=== PATIENT | female | born 1960 | race Caucasian/White ===

== ENCOUNTER 2020-11-04 10:52 | Inpatient (IN) | payer OTHER ==
[~2020-11-04] VITALS: Ht 160 cm; Wt 46.0 kg
[2020-11-04 10:52] VITALS: BP 106/37
[2020-11-04 12:08] LABS: ABSOLUTE NEUTROPHILS 7.2 thou/uL (1.4-8.2); BASOPHILS 0.5 % (0.0-2.0); EOSINOPHILS 1.5 % (0.0-3.0); HEMATOCRIT 34.2 % (37.0-47.0); HEMOGLOBIN 11.3 gm/dL (12.0-15.0); LYMPHOCYTES 11.8 % (24.0-44.0); MCHC 32.9 g/dL (28.0-37.0); MCV 94.1 fL (80.0-100.0); MONOCYTES 9.3 % (1.0-8.0); PLATELET COUNT 381 thou/uL (150-400); POLYS 76.9 % (36.0-66.0); RBC 3.63 mil/uL (4.20-5.00); RDW 12.4 % (10.5-14.5); WBC 9.4 thou/uL (4.0-11.0)
[2020-11-04 12:14] LABS: CALCIUM 8.1 mg/dL (8.5-10.1); CREATININE 0.4 mg/dL (0.6-1.0); POTASSIUM 4.1 mmol/L (3.5-5.1)
[2020-11-04 12:26] LABS: ALBUMIN 2.4 g/dL (3.4-5.0); TOTAL BILIRUBIN 0.2 mg/dL (0.2-1.0)
[2020-11-04 20:01] VITALS: BP 114/52
[2020-11-04 21:41] VITALS: BP 109/47
[2020-11-05 06:23] LABS: ABSOLUTE NEUTROPHILS 6.1 thou/uL (1.4-8.2); BASOPHILS 0.6 % (0.0-2.0); EOSINOPHILS 2.1 % (0.0-3.0); HEMATOCRIT 34.4 % (37.0-47.0); HEMOGLOBIN 11.5 gm/dL (12.0-15.0); MCH 31.5 pg (26.0-34.0); MCHC 33.6 g/dL (28.0-37.0); MCV 93.7 fL (80.0-100.0); MONOCYTES 10.3 % (1.0-8.0); PLATELET COUNT 371 thou/uL (150-400); RBC 3.67 mil/uL (4.20-5.00); RDW 12.5 % (10.5-14.5); WBC 8.2 thou/uL (4.0-11.0)
[2020-11-05 06:41] LABS: ALBUMIN 2.4 g/dL (3.4-5.0); CALCIUM 8.1 mg/dL (8.5-10.1); CREATININE 0.4 mg/dL (0.6-1.0); MAGNESIUM 2.2 mg/dL (1.8-2.4); PHOSPHORUS 3.7 mg/dL (2.5-4.9); POTASSIUM 3.5 mmol/L (3.5-5.1); TOTAL BILIRUBIN 0.4 mg/dL (0.2-1.0); TOTAL PROTEIN 6.2 g/dL (6.4-8.2)
[2020-11-05 07:20] VITALS: BP 52/27
[2020-11-05] MEDS ORDERED: CULTURELLE KID1 EAC1 PO (07:59)
[2020-11-05] MEDS ORDERED: APAP W/CODEINE1 TA2 PO (07:59)
[2020-11-05] MEDS ORDERED: FOSAMAX 70 MG T70 MG PO (08:00)
[2020-11-05] MEDS ORDERED: ASA81BEC PO (08:01)
[2020-11-05] MEDS ORDERED: AZO D-MANNOSE500 MG PO (08:02)
[2020-11-05] MEDS ORDERED: BACLOFEN 10MG T10 MG PO (08:02)
[2020-11-05] MEDS ORDERED: OXYBUTYNIN 5 MG5 M2 PO (08:03)
[2020-11-05] MEDS ORDERED: DULCOLAX STOOL100 M1 PO (08:03)
[2020-11-05] MEDS ORDERED: MELOXICAM15 MG PO (08:03)
[2020-11-05] MEDS ORDERED: SANTYL OINTMENT30 G1 TOP (08:04)
[2020-11-05] MEDS ORDERED: SERTRALINE HCL100 MG PO (08:04)
[2020-11-05] MEDS ORDERED: TUMS300 MG PO (08:05)
[2020-11-05] MEDS ORDERED: VITAMIN D310 MC4 PO (08:06)
[2020-11-05 10:01] VITALS: BP 98/43
--- NOTE | 2020-11-05 11:15 | NUR ---
Assumed care of pt at 0700. Pt a&ox3. Pain controlled with prn pain medicine. Feliz catheter in place. IV antibiotics infusing. RA. Home meds reconcilled. Call light within reach. Fall precautions in place. Will continue to monitor.
--- NOTE | 2020-11-05 11:57 | HC ---
[facility] [place] [address] CONSULTATION Name: RISSA HASKINS Room #: 442- ADM IN M.R.#: [id number] Admission: 11/04/20 Attend Phys: Stephanie Hand MD Discharge: Date of : 58 Report #: [id number] THIS REPORT FOR: cc: FAM - Family physician unknown FAM - Family physician unknown Billy Lugo MD ~ DATE OF SERVICE: 11/04/2020 INFECTIOUS DISEASE CONSULTATION ATTENDING PHYSICIAN: Dr. Hand. REASON FOR EVALUATION: Infected sacral decubitus ulcer. HISTORY OF PRESENT ILLNESS: The patient examined. This is a 60-year-old woman with history of longstanding multiple sclerosis who has significant deficits at this point. Up until three weeks ago, had been limited to bed and wheelchair, now is primarily in bed. She has a history where she slid out of a wheelchair and sustained a skin tear, apparently progressed now as noted to have an ulcer with increasing drainage and malodor. Additionally, she notes likely pressure related as well. Has left posterior heel tissue injury, although still has intact skin. Denies any systemic illness at this point. She notes she has difficulty maintaining her weight. Appetite is somewhat intermittent. She has esophageal spasms as well. She denies any pulmonary related complaints. She was COVID negative. Albumin 2.4. Lactic acid 1.3. Apparently had a left tib-fib injury with fracture of the proximal tibia she notes roughly a month ago. ALLERGIES: None known. MEDICATIONS: None thus far have been started. PAST MEDICAL HISTORY: Includes MS that has been secondarily progressive with severe deficits at this point, now a stage III decubitus ulcer; malnutrition. SOCIAL HISTORY: She is disabled. FAMILY HISTORY: Noncontributory. REVIEW OF SYSTEMS: Otherwise, unremarkable with the exception of the above. PHYSICAL EXAMINATION: GENERAL: She appears chronically ill, undernourished. She is pleasant, cooperative. She is lucid, although she does have some minor memory issues. She is afebrile. VITAL SIGNS: Pulse 77, respirations 15, blood pressure 106/37. [facility] [address] [place] [address] CONSULTATION Name: RISSA HASKINS Room #: 442-P [facility].#: [id number] Admission: 11/04/20 Attend Phys: Stephanie Hand MD Discharge: Date of : 58 Report #: [id number] SKIN: Warm, dry, no rashes. HEENT: Normocephalic. Extraocular muscles intact. NECK: Supple. LUNGS: Diminished breath sounds, otherwise clear. HEART: Regular. I do not appreciate a murmur. ABDOMEN: Soft, nontender. EXTREMITIES: Distal lower extremity has a blackened type eschar over the posterior heel. The limitations in the ER, the wound will be evaluated when she is better able to roll with assistance. Wound care is pending. GENITOURINARY AND RECTAL: Deferred. LABORATORY DATA: CBC: White count of 9.4, H and H 11.3 and 34.2, platelets of 381. CRP of 51.2. Electrolytes: Sodium 137, potassium 4.1, chloride 101, bicarbonate is 28, BUN and creatinine 13 and 0.4, glucose of 144. LFTs unremarkable. Albumin of 2.4, total protein of 6.0, lactic acid 1.3. Sed rate of 44. ASSESSMENT AND PLAN: Stage III sacral decubitus ulcer in the setting of multiple sclerosis with profound disability. At this point, she also has a hypoalbuminemia with malnutrition and mild anemia. We will initiate therapy for presumed mixed infection, suspect will need some sort of debridement of the wound to remove the devitalized tissue. Will need dietary evaluation to optimize her nutritional status. She is somewhat limited, offloading going to be somewhat difficult, continuing rotation. We will monitor expectantly at risk for additional complications. <ELECTRONICALLY SIGNED> By: Billy Lugo MD 11/05/20 1157 [id number] Billy Lugo MD /nt
--- NOTE | 2020-11-05 15:53 | NUR ---
ASSESSMENT: CM REVIEWED CHART AND SPOKE WITH PATIENT THE BEDSIDE. PT IS FROM [facility]. PER RECORDS PT HAS STAGE THREE PRESSURE ULCER. PT REPORTS NORMALLY USING A WHEELCHAIR FOR AMBULATION. PT REPORTS PRIOR TO BEING AT [facility] SHE WAS LIVING WITH HER NIECE IN A DUPLEX. PT REPORTS THAT SHE PREFERS TO GO BACK TO [facility] AT DISCHARGE. CM FAXED CLINICAL TO [facility] AND LEFT A VM WITH ADMISSIONS. PT IS BEING SEEN BY ID. PER RECORDS PT MAY NEED I AND D. PT REMAINS ON IV ANBX. CM WILL CONTINUE TO FOLLOW TO ASSIST NEEDED.
[2020-11-05 17:00] VITALS: BP 109/54
[2020-11-05 20:09] VITALS: BP 102/38
--- NOTE | 2020-11-06 03:31 | NUR ---
assumed care of pt at 1900. bedside shift report complete. Pt aox4. No c/o pain at this time. Beginning of shift assessment complete. LFA PIV saline locked. Meds given per may. Bilaterlat prafo boots in place, pt repositioned for comfort. Fall precations in place. Pt will be NPO at NH, pt educated provided, pt verbalized understanding. All needs med. Fall precations in place. Call light in reach. Will continute to monitor.
[2020-11-06 07:06] VITALS: BP 95/41
[2020-11-06 09:40] VITALS: BP 112/44
--- NOTE | 2020-11-06 10:50 | NUR ---
PT ASSESSED AT START OF SHIFT. PT SLEPT OK. COMFORTABLE. WENT FOR I&D OF BUTTOCK ULCER. IV NOTED TO BE INFILTRATED AT TIME OF DEPARTURE FOR OR- WILL HAVE DEPT RESTART IV. SISTER AT BEDSIDE.
--- NOTE | 2020-11-06 14:51 | NUR ---
ON-GOING ASSESSMENT: PT IS D/P EXCISIONAL DEBRIDEMENT TODAY. PT REMAINS ON IV ANBX. PT IS FROM [facility] SO CM FAXED UPDATED CLINICAL TO [facility] AND SPOKE WITH NOEMÍ IN ADMISSIONS. CM ALSO SPOKE WITH PATIENTS SISTER WHO WAS AT THE BEDSIDE. PTS SISTER WORKS AT [facility] AND NOT TOO HAPPY WITH THE WOUND CARE THERE. SHE STATES SHED PREFER PATIENT COME BACK HOME WHERE SHE LIVES WITH PATIENT AND HER HELP HER. SHE REPORTS THEY LIVE IN A DUPLEX AND EASY TO GET HER WHEELCHAIR IN THERE. SHE REPORTS SHE FEELS WITH HH AND HER ASSISTANCE SHE WOULD DO OK. CM DISCUSSED THAT PATIENT COULD ALSO GO TO ANOTHER SNF FOR WOUND CARE AND PT/SISTER CURRENTLY DECLINE. SISTER STATES SHE WANTS TO DO [employer] [facility] [employer] AND WILL LET CM KNOW. PTS SISTER ASKING FOR POSSIBLE GUESSTIMATE ON DISCHARGE DATE. CM DISCUSSED PT IS STILL ON IV ANBX AND UNCLEAR ON THAT PLAN OF NOW.CM REACHED OUT TO ATTENDING AND WAITING TO HEAR BACK.
[2020-11-06 16:54] VITALS: BP 102/51
--- NOTE | 2020-11-06 18:30 | NUR ---
PT WENT FOR BUTTOCK WOUND DEBRIDEMENT AND RETURNED W/ DSNG TO BACKSIDE D&I. TEMP 99.2. EATING AND DRINKING VERY WELL. NO C/O PAIN POSTOP.
[2020-11-06 19:42] VITALS: BP 96/43
--- NOTE | 2020-11-07 02:36 | NUR ---
Assyukimd care of pt at 1900. Aox4. MARLI assessment complete. Pt had ID compelted today. pt requesting tylenol at [facility] for pain control. Meds given as ordered, prn tylenol administered. Prafo boots on nilateral LEs. Pts 1700 IV abt was not administered, so this nurse called pharmacy to adjust timings to esnure pt is getting IV abt q8. Provided educationto pt on pending US on L hip ulcer. pt verbalized understanding. Feliz care complete. ector care complete. Dressings CDI. refilled water. pt denies any other needs. Call light in reach, all needs met
[2020-11-07 04:17] VITALS: BP 89/50
[2020-11-07 07:23] VITALS: BP 94/45
--- NOTE | 2020-11-07 08:55 | NUR ---
Assumed care of pt at 0700. Pt a&ox4. Pain controlled. IVF infusing. Dressing c/d/i. Feliz catheter in place. Q2h turn. Call light within reach. Fall precautions in place. Will continue to monitor.
[2020-11-07 16:00] VITALS: BP 167/74
[2020-11-07 21:18] VITALS: BP 88/39
--- NOTE | 2020-11-08 03:51 | NUR ---
PT HAD A BIG BM AT START OF SHIFT.WOUND CARE DONE IMMEDIATELY AFTER DUE TO SOILAGE.PT REPOSITIONED Q2 IN BED.ROBYN BRACE IN PLACE WHILE IN BED.TYLENOL GIVEN FOR PAIN PER PT'S REQUEST.PT ABLE TO MAKE HER NEEDS KNOWN.HERNANDEZ CATH IN PLACE WITH ADEQUATE OUTPUT.CALL LIGHT WITHIN REACH.
[2020-11-08 04:07] VITALS: BP 89/53
[2020-11-08 07:58] VITALS: BP 94/49
--- NOTE | 2020-11-08 09:46 | NUR ---
Assumed care of pt at 0700. Pt alert but forgetful at times. Dressing c/d/i. Q2h turn. IV antibiotics infusing. Pain controlled. Call light within reach. Fall precautions in place. Will continue to monitor.
[2020-11-08 15:35] VITALS: BP 96/36
[2020-11-08 18:56] VITALS: BP 100/44
--- NOTE | 2020-11-09 04:43 | NUR ---
ASSUMED PT CARE AT 1900.PT ALERT WITH PERIODS OF FORGETFULNESS.PT C/O PAIN TO HER LLE,MANAGED WITH MED.IV ABX GIVEN ORDERED.DRSG TO HER COCCYX INTACT.PT REPOSITIONED WHILE IN BED.HERNANDEZ CATH TO DD.PT ABLE TO MAKE HER NEEDS KNOWN.CALL LIGHT WITHIN REACH.
[2020-11-09 08:05] VITALS: BP 104/51
--- NOTE | 2020-11-09 11:36 | NUR ---
ON-GOING ASSESSMENT: HOLLY REVIEWED CHART AND SPOKE WITH PATIENT AND HER SISTER. PT IS STILL WANTING TO RETURN TO HER HOME WHERE SHE LIVES WITH HER SISTER MIREILLE WHO IS AN RN WELL HER DAUGHTER WHO IS AN RN IN THEIR DUPLEX. PT REPORTS THAT SHE DOES NOT WISH TO RETURN TO [facility] SN[facility] AND FEELS SHE WILL GET BETTER CARE AT HOME. PT WAS IN SERVICE WITH [facility] PRIOR TO GOING TO THE SNF. PT WISHES TO BE RE-EVALUATED FROM [facility] AND WANTED TO GO HOME WITH THAT AT DISCHARGED. HOLLY SPOKE WITH PTS SISTER WHO REPORTS SHE HAS ALREADY TALKED WITH DEZ AT [facility] ([phone]) AND THEY ARE WANTING TO SEE IF PATIENT NOW QUALIFIES FOR HOSPICE SERVICES SHE WOULD BE ABLE TO GET MUCH BETTER EQUIPMENT. HOLLY SPOKE WITH DEZ WHO REPORTS SHE HAD A LONG TALK WITH PATIENTS SISTER AND THEY CAN EVALUATE FOR HOSPICE SERVICES AND PT WOULD NOT HAVE TO BE DNR WITH THEIR COMPANY IS SHE DID SIGN UP FOR HOSPICE SERVICES. REFERRAL WAS SENT TO [facility] PER PATIENT AND HER SISTERS REQUEST. HOLLY NOTIFIED DEZ AND AWAITING FURTHER INPUT FROM THEM AT THIS TIME.
--- NOTE | 2020-11-09 14:30 | NUR ---
PT ASSESSED AT START OF SHIFT. DR. PRIEST IN EARLY AND CHECKED WOUNDS. DRESSINGS CHANGED. WOUND BEDS VERY CLEAN AND APPEAR TO BE HEALING. VERY LITTLE PAIN. DOES HAVE SOME CONSTIPATION. PT TRANSFERRED TO [facility]WEST PER BED. REPORT GIVEN TO RECEIVING RN.
[2020-11-09 16:19] VITALS: BP 104/51
[2020-11-09 16:21] VITALS: BP 104/51
--- NOTE | 2020-11-09 19:32 | NUR ---
Received pt from [address] [place] [address] late in the pm. VS stable, Wound dressing is c/d/i. POC followed with no signs or verbalizations of distress noted.
[2020-11-09 19:38] VITALS: BP 95/45
--- NOTE | 2020-11-10 05:03 | NUR ---
Assumd pt care at 1900.A/OX4,VSS. Denies pain on assessment. Wounds to R/LIT with dsg C/D/I. Feliz in place with yellow urine. Trying to have a bowel movement via bedpan;soft but unable to push it out,declined need for prune juice or any bowel aids at this sruthi,will continue to monitor pt. Fall precautions in place.
[2020-11-10 07:56] VITALS: BP 94/87
[2020-11-10 08:30] VITALS: BP 95/45
[2020-11-10] MEDS ORDERED: AUGMENTIN 875-1 EACH PO ×2 (11:16→15:15)
[2020-11-10] MEDS ORDERED: ASA81BEC PO (11:17)
[2020-11-10] MEDS ORDERED: BACLOFEN 10MG T10 MG PO ×2 (11:17→15:16)
[2020-11-10] MEDS ORDERED: MELOXICAM15 MG PO (11:17)
[2020-11-10] MEDS ORDERED: APAP W/CODEINE1 TA2 PO (11:17)
[2020-11-10] MEDS ORDERED: SERTRALINE HCL100 MG PO (11:17)
[2020-11-10] MEDS ORDERED: DULCOLAX STOOL100 M1 PO (11:18)
[2020-11-10] MEDS ORDERED: VITAMIN D310 MC4 PO (11:18)
[2020-11-10] MEDS ORDERED: OXYBUTYNIN 5 MG5 M2 PO (11:18)
[2020-11-10] MEDS ORDERED: FOSAMAX 70 MG T70 MG PO (11:19)
[2020-11-10] MEDS ORDERED: UNASYN 3 GM VIAL3 G1 IV (12:57)
--- NOTE | 2020-11-10 15:18 | NUR ---
PT TO DC TO HE SISTER MIREILLE'S HOUSE THIS DAY WITH [place] [facility]. THERE HAD BEEN A PICC AND IV ABX ORDERED FOR HOME BUT CARE TEAM WASN'T AWARE THAT HOSPICE SERVICES WERE ELECTED UPON DC. PT TO DC ON ORAL AUGMENTIN. CM CONFIRMED WITH PT AND SISTER MIREILLE THAT THEY INFACT WANT HOME WITH HOSPICE SERVICES AND ORAL ABX UPON DC. EQUIPTMENT DELIVERED AND [facility] TRANSPORT SET UP FOR 1630. SISTER AWARE AND HOSPICE COMPANY NOTIFIED. NO OTHER CM INTERVENTION INDICATED. CASE CLOSED.
--- NOTE | 2020-11-10 17:19 | NUR ---
PT A&OX4.PT IN BED Q2 TURNS, UNSTAGABLE PRESSURE ULCER TO L BUTTOCK. DRESSING CHANGED TO LEFT BUTTOCK, CLEANSED WITH NS PACKED WITH NS SOAKED KERLIX, COVERED WITH ABD AND TAPE. PT LEFT VIA TRANSPORT [facility]. PT DC'D HOME WITH HOSPICE.
--- NOTE | 2020-11-12 18:37 | HC ---
[facility] [address] [place] [address] CONSULTATION Name: RISSA HASKINS Room #: 463-P [facility] IN M.R.#: [id number] Admission: 11/04/20 Attend Phys: Stephanie Hand MD Discharge: 11/10/20 Date of : 58 Report #: [id number] THIS REPORT FOR: cc: FAM - Family physician unknown FAM - Family physician unknown Ry Monterroso MD ~ DATE OF SERVICE: 11/05/2020 CHIEF COMPLAINT: Left heel and left gluteal pressure ulceration. HISTORY OF PRESENT ILLNESS: This is a 60-year-old female patient admitted to the hospital. She has severe multiple sclerosis, malnutrition, and is bedbound status. She has had a previous left tib-fib fracture. She apparently fell on the floor, sustaining a skin tear. She is unable to turn herself or reposition herself and is here for further wound care evaluation. PAST MEDICAL HISTORY: Positive for history of malnutrition, progressive multiple sclerosis with severe disability and worsening pressure ulcerations. ALLERGIES: No known drug allergies. MEDICATIONS: Sertraline, aspirin, Zosyn, baclofen. FAMILY HISTORY: Noncontributory. SOCIAL HISTORY: Negative for current alcohol or tobacco use. REVIEW OF SYSTEMS: CONSTITUTIONAL: The patient complains of generalized weakness, generalized debility. ENT: The patient denies earache, nasal drainage or throat. CARDIOVASCULAR: The patient denies chest pain, palpitations, diaphoresis. PULMONARY: No cough, shortness of breath. GASTROINTESTINAL: The patient denies nausea, vomiting, diarrhea or abdominal pain. ORTHOPEDIC: The patient is aware of the pressure ulcerations and the heel ulceration. Others systems in a 14-point review of systems are negative. PHYSICAL EXAMINATION: VITAL SIGNS: At this time include temperature 36.6, pulse 72, respiration 16, blood pressure 98/43. GENERAL: This is a chronically ill-appearing, very debilitated appearing female patient, who appears to be in mild discomfort. HEENT: Normocephalic. Nose and throat are clear. [address] [address] CONSULTATION Name: RISSA HASKINS Room #: 463-[facility].#: [id number] Admission: 11/04/20 Attend Phys: Stephanie Hand MD Discharge: 11/10/20 Date of : 58 Report #: [id number] NECK: Supple. LUNGS: Diminished. HEART: Regular rhythm. ABDOMEN: Soft and nontender. EXTREMITIES: Demonstrate a long posterior Velcro splint on the left lower extremity. The patient appears to have unstageable pressure ulcers to her left heel. She has some moist eschar. She has an unstageable pressure ulceration to her left and right ischial and gluteal regions. LABORATORY DATA: Include sodium 136, potassium 3.5, chloride 100, CO2 of 28, BUN 7, creatinine 0.4, and glucose of 81. CRP is 51. Albumin is 2.4. White blood cell count 8.2 with a hemoglobin 11.5. CLINICAL IMPRESSION: 1. Unstageable pressure ulcer of the left heel. 2. Unstageable pressure ulcer of the left and right ischial tuberosities. RECOMMENDATIONS: At this point in time, we will recommend a possible surgical debridement. Dr. Valderrama has been consulted. I think once the wounds are cleaned up, I think we have a much better chance at wound healing. The patient is agreeable to the current plan of care. We will need aggressive nutritional support to maximize wound healing, low air loss mattress and q. 2 hour turning and positioning. I appreciate being asked to see her in consultation. <ELECTRONICALLY SIGNED> By: Ry Monterroso MD 11/12/20 1837 [id number] Ry Monterroso MD /nt
--- NOTE | 2020-11-15 18:23 | O ---
[facility] [place] [address] [place] [address] OPERATIVE REPORT Name: RISSA HASKINS Wilmer Room #: 463-P [facility] IN M.R.#: [id number] Admission: 11/04/20 Attend Phys: Stephanie Hand MD Discharge: 11/10/20 Date of : 58 Report #: [id number] THIS REPORT FOR: cc: FAM - Family physician unknown FAM - Family physician unknown Jonn Valderrama MD ~ DATE OF SERVICE: 11/06/2020 PREOPERATIVE DIAGNOSIS: Left buttock pressure ulcer, stage III, 3 x 3 cm. POSTOPERATIVE DIAGNOSIS: Left buttock pressure ulcer, stage III, 3 x 3 cm. OPERATION: Excisional debridement of left buttock pressure ulcer down through the bone, 6 x 5 cm. SURGEON: Jonn Valderrama MD ANESTHESIA: General. ESTIMATED BLOOD LOSS: Minimal. SPECIMENS: 1. Deep tissue for culture and sensitivity. 2. Bone for culture. DESCRIPTION OF PROCEDURE: After informed consent was obtained, the patient was brought to the operating room and placed supine. SCDs were placed and working, preoperative antibiotics were administered, general anesthesia was induced. The patient was placed in the right lateral decubitus position with all bony prominences protected in an axillary roll. The area was then prepped and draped in the usual sterile fashion. This was an excisional debridement. Depth was down through the bone. 100 percent of the wound was debrided. Post-debridement wound area was 6 x 5 cm. I used the cautery to first debride away the necrotic tissue. Edges of the skin were also debrided, so that the final measurement was 6 x 5 cm. I dissected down to the bone. A rongeur was used to take a piece of the left ischial tuberosity and sent for culture. The wound bed was fair after the debridement had been undertaken. The area was then packed with sterile gauze. Sterile dressings were applied. COMPLICATIONS: None. DISPOSITION: The patient was taken to recovery in satisfactory condition. <ELECTRONICALLY SIGNED> By: Jonn Valderrama MD 11/15/20 1823 [id number] [id number] Jonn Valderrama MD /nt
== END 2020-11-10 17:25 | disposition hospice, home (50) | DRG 579 ==
LOC: ER 10:52 → EROBS 14:10 → 4S 14:10 → EROBS 16:49 → 4S 20:03 → 4W 11-09 15:25
PROVIDERS: Physician Assistant; ADMIT Internal Medicine; ATTEND Internal Medicine
PROC: 0QB30ZZ Excision of Left Pelvic Bone, Open Approach (ICD-10-PCS; principal; 2020-11-06)
DX: L89.323 Pressure ulcer of left buttock, stage 3 (principal); E43 Unspecified severe protein-calorie malnutrition; M86.8X8 Other osteomyelitis, other site; L02.818 Cutaneous abscess of other sites; Z68.1 Body mass index [BMI] 19.9 or less, adult; L89.153 Pressure ulcer of sacral region, stage 3; G35 Multiple sclerosis; D64.9 Anemia, unspecified; E88.09 Other disorders of plasma-protein metabolism, not elsewhere classified; L89.620 Pressure ulcer of left heel, unstageable; M85.80 Other specified disorders of bone density and structure, unspecified site; L89.890 Pressure ulcer of other site, unstageable; Z20.822 Contact with and (suspected) exposure to COVID-19; Z79.899 Other long term (current) drug therapy; Z74.01 Bed confinement status
CPT/HCPCS: 10040; 10195; 50101; 50386; 50403; 62110; 62900; 70005